=== PATIENT | female | born 2000 | race Caucasian/White ===

== ENCOUNTER 2023-03-24 11:09 | Emergency (ER) | payer MEDICAID, OTHER ==
[~2023-03-24] VITALS: Ht 160 cm; Wt 57.0 kg
[2023-03-24 11:17] VITALS: O2SAT 100
[2023-03-24] MEDS: SODIUM CHLORIDE 0.9% 2,000 ML IV ONE (13:06)
[2023-03-24] MEDS: KETOROLAC 30MG/ML VIAL IV ONE (13:11)
[2023-03-24] MEDS: DIAZEPAM 5 MG/ML 2ML CPJ IV ONE (13:11)
[2023-03-24 13:34] LABS: BASOPHILS % 0.6 % (0.0-2.0); EOSINOPHILS % 0.1 % (0.0-5.0); HEMATOCRIT. 36.1 % (36.0-48.0); HEMOGLOBIN. 12.7 g/dL (12.0-16.0); LYMPHOCYTES % 16.6 % (20.0-50.0); MEAN CORPUSCULAR HEMOGLOBIN 30.5 pg (28.0-32.0); MEAN CORPUSCULAR VOLUME 87.1 fL (81.0-99.0); MEAN PLATELET VOLUME 9.4 fl (7.4-10.4); MONOCYTES % 3.7 % (2.0-8.0); PLATELET 236 x1000/uL (130-400); RED BLOOD CELL COUNT 4.15 mill/uL (4.2-5.4); RED CELL DISTRIBUTION WIDTH 12.3 % (11.6-14.6); WHITE BLOOD COUNT 9.8 x1000/uL (4.5-11.0)
[2023-03-24 13:53] LABS: CHLORIDE 108 mEq/L (98-107); INDEX HEMOLYSI 1 (1-3); INDEX ICTERIC 1 (1-4); INDEX LIPEMIC 1 (1-3); POTASSIUM 3.5 mEq/L (3.5-5.1); SODIUM 137 mEq/L (136-145)
[2023-03-24 14:02] LABS: ALANINE AMINOTRANSFERASE 14 IU/L (13-61); ALBUMIN 3.9 g/dL (3.4-5.0); ASPARTATE AMINOTRANSFERASE 15 IU/L (15-37); BILIRUBIN TOTAL 1.2 mg/dL (0.1-1.0); CALCIUM 8.8 mg/dL (8.5-10.1); CARBON DIOXIDE 25 mEq/L (21-32); CREATININE 0.5 mg/dL (0.6-1.3); GLUCOSE 82 mg/dL (70-105); PROTEIN TOTAL 7.7 g/dL (6.0-8.3); UREA NITROGEN BLOOD 9 mg/dL (7-21)
[2023-03-24 14:47] LABS: HCG SCREEN NEGATIVE
[2023-03-24] MEDS ORDERED: DIAZ5TAB MT (15:12)
[2023-03-24 15:37] VITALS: BP 111/60; PULSE 98; RESP 13; TEMP 98.2
== END 2023-03-24 15:39 | disposition home or self-care (01) ==
LOC: ER 11:09
DX: S16.1XXA Strain of muscle, fascia and tendon at neck level, initial encounter (principal); X58.XXXA Exposure to other specified factors, initial encounter; Y93.89 Activity, other specified; Y92.89 Other specified places as the place of occurrence of the external cause; Y99.8 Other external cause status
CPT/HCPCS: 80053; 81025; 84703; 85025; 36415; 96361; 96374; 96375; 99285; J3360; J1885; J7030; Z7610 ×2

== ENCOUNTER 2023-04-29 11:50 | Emergency (ER) | payer MEDICAID ==
[~2023-04-29] VITALS: Ht 160 cm; Wt 54.4 kg
[~2023-04-29 11:50] MED LIST: DIAZ5TAB MT
[2023-04-29 12:07] VITALS: BP 126/66; PULSE 128; RESP 16; TEMP 98.8; O2SAT 100
== END 2023-04-29 13:12 | disposition home or self-care (01) ==
LOC: ER 11:50
DX: J11.1 Influenza due to unidentified influenza virus with other respiratory manifestations (principal)
CPT/HCPCS: 99283